=== PATIENT | male | born 1945 | race Caucasian/White ===

== ENCOUNTER 2018-02-09 07:42 | Day surgery (SDC) | payer OTHER ==
[~2018-02-09] VITALS: Ht 185.4 cm; Wt 117.9 kg
[2018-02-09] VITALS (12 sets, daily range): BP systolic 128–156; BP diastolic 65–80
[2018-02-09] MEDS ORDERED: dextrose ORAL solution 15 GM/59 ML bottle PO PRN ×2 (08:25)
[2018-02-09] MEDS ORDERED: MESSAGE TO PHARMACY PO ONE (08:25)
[2018-02-09] MEDS ORDERED: diphenhydrAMINE 25mg capsule PO PRN (08:25)
[2018-02-09] MEDS ORDERED: insulin Lispro (HumaLOG) vial - multi-dose SQ SCH (08:25)
[2018-02-09] MEDS ORDERED: dextrose 50%-water 50ml dispensing syringe IV PRN ×2 (08:25)
[2018-02-09] MEDS ORDERED: normal saline 1000ml 1,000 ML IV SCH ×2 (08:25→14:10)
[2018-02-09] MEDS ORDERED: glucagon, human recombinant 1mg kit SUBCUT PRN (08:25)
[2018-02-09] MEDS ORDERED: LORazepam 0.5 MG tablet PO PRN (08:25)
[2018-02-09] MEDS ORDERED: nitroGLYCERIN 0.4mg SUBLingual tab SL PRN ×2 (08:25→14:10)
[2018-02-09 08:48] LABS: PARTIAL THROMBOPLASTIN TIME 26 SECONDS (22-32); PROTHROMBIN TIME 10.3 SECONDS (9.0-12.0)
[2018-02-09 08:52] LABS: ANION GAP 12 (8-16); BLOOD UREA NITROGEN 14 MG/DL (7-18); BUN/CREATININE RATIO 14.3 (5.4-32.0); CALCIUM 8.7 MG/DL (8.5-10.1); CHLORIDE 102 MMOL/L (99-107); CREATININE 0.98 MG/DL (0.60-1.10); GLUCOSE 233 MG/DL (70-104); POTASSIUM 4.1 MMOL/L (3.5-5.1); SODIUM 137 MMOL/L (135-145); TOTAL CARBON DIOXIDE 23.4 MMOL/L (24-32); eGFR 75 ML/MIN
[2018-02-09 09:02] LABS: BASOPHILS % (AUTO) 0.6 % (0-1); EOSINOPHILS # (AUTO) 0.3 X10'3 (0-0.9); EOSINOPHILS % (AUTO) 4.4 % (0-6); HEMATOCRIT 39.8 % (42.0-52.0); HEMOGLOBIN 13.7 g/dl (14.0-17.9); LYMPHOCYTES % (AUTO) 27.5 % (21-51); MEAN CORPUSCULAR HEMOGLOBIN 30.5 PG (27.0-31.0); MEAN CORPUSCULAR HGB CONC 34.5 % (33.0-36.5); MEAN CORPUSCULAR VOLUME 88.4 FL (78-98); MEAN PLATELET VOLUME 9.3 FL (7.4-10.4); MONOCYTES # (AUTO) 0.6 X10'3 (0-0.9); MONOCYTES % (AUTO) 8.8 % (2-12); NEUTROPHILS # (AUTO) 4.3 X10'3 (1.8-7.7); NEUTROPHILS % (AUTO) 58.7 % (42-75); PLATELET COUNT 225 X10'3 (140-440); WHITE BLOOD COUNT 7.3 X10'3 (4.5-11.0)
[2018-02-09] MEDS ORDERED: ATOR40TA PO (09:57)
[2018-02-09] MEDS ORDERED: INSU100V9 SQ (09:57)
[2018-02-09] MEDS ORDERED: LISI-600 PO (09:57)
[2018-02-09] MEDS ORDERED: HYDR25TA4 PO (09:57)
[2018-02-09] MEDS ORDERED: CARV3.122 PO (09:57)
[2018-02-09] MEDS ORDERED: METF10002 PO (09:57)
[2018-02-09] MEDS ORDERED: CLOP75TA15 PO (09:57)
[2018-02-09] MEDS ORDERED: ACAR100T3 PO (09:57)
[2018-02-09] MEDS ORDERED: ASPI-1265 PO (09:57)
[2018-02-09] MEDS ORDERED: iohexol 350 MG/ML 50ML vial IV ONE (10:36)
[2018-02-09] MEDS ORDERED: iohexol 350MG/ML 100ml bottle IV ONE (10:36)
[2018-02-09] MEDS ORDERED: midazolam 2 mg/2 ml injection ONE (10:36)
[2018-02-09] MEDS ORDERED: fentaNYL/PF 50MCG/1 ML 2ML syringe ONE (10:36)
[2018-02-09] MEDS ORDERED: LIDOcaine 1%/PF (10mg/ml) 5ml vial ONE ×2 (10:36→11:06)
[2018-02-09] MEDS ORDERED: HYDROcodone/acetaminophen 5mg/325mg tablet PO PRN (14:10)
[2018-02-09] MEDS ORDERED: ondansetron/PF 4mg/2ml inj IV PRN (14:10)
[2018-02-09] MEDS ORDERED: OXAZEpam 15mg capsule PO PRN (14:10)
[2018-02-09] MEDS ORDERED: proCHLORperazine 10 MG/2 ml inj IV PRN (14:10)
[2018-02-09] MEDS ORDERED: HYDROcodone/acetaminophen 10/325mg tab PO PRN (14:10)
[2018-02-09] MEDS ORDERED: insulin glargine (Lantus) pen - multi-dose SQ SCH (21:00)
== END 2018-02-09 17:30 | disposition home or self-care (01) ==
LOC: SSTAY O 07:42
PROVIDERS: ATTEND Internal Medicine Cardiovascular Disease
DX: I25.10 Atherosclerotic heart disease of native coronary artery without angina pectoris (principal); E11.9 Type 2 diabetes mellitus without complications; I10 Essential (primary) hypertension; K21.9 Gastro-esophageal reflux disease without esophagitis; E78.5 Hyperlipidemia, unspecified; F32.9 Major depressive disorder, single episode, unspecified; Z98.890 Other specified postprocedural states; Z86.74 Personal history of sudden cardiac arrest; Z85.028 Personal history of other malignant neoplasm of stomach; Z95.5 Presence of coronary angioplasty implant and graft; Z79.01 Long term (current) use of anticoagulants; Z79.82 Long term (current) use of aspirin; Z79.4 Long term (current) use of insulin; Z79.84 Long term (current) use of oral hypoglycemic drugs; Z79.899 Other long term (current) drug therapy
CPT/HCPCS: 36415; 71046; 80048; 82948; 83036; 85025; 85610; 85730; 93005; 93458; 99152; A6257; C1760; C1769; J1644; J2001; J2250; J3010; J7030; Q0163; Q9967; A4620; J1815

== ENCOUNTER 2023-08-17 10:15 | Outpatient (CLI) | payer OTHER ==
[~2023-08-17 10:15] MED LIST: ACAR100T2 PO; ASPI-1265 PO; ATOR40TA PO; CARV3.122 PO; CLOP75TA15 PO; HYDR25TA4 PO; INSU100V9 SQ; LISI20TA28 PO; METF-438 PO
[2023-08-17 11:02] LABS: BILIRUBIN,URINE NEGATIVE (Neg); CLARITY,URINE SLIGHTLY CLOUDY (Clear); COLOR,URINE YELLOW (Yellow); GLUCOSE, URINE NEGATIVE (Neg); KETONES,URINE NEGATIVE (Neg); LEUKOCYTE ESTERASE ,URINE NEGATIVE (Neg); NITRITES, URINE NEGATIVE (Neg); OCCULT BLOOD,URINE NEGATIVE (Neg); PROTEIN,URINE NEGATIVE (Neg); UROBILINOGEN,URINE 0.2 E.U/dL (0.2-1.0)
[2023-08-17 11:05] LABS: UA COLLECTION TYPE VOIDED
[2023-08-17 11:14] LABS: ALBUMIN 3.6 G/DL (3.4-5.0); ANION GAP 8 (8-16); BLOOD UREA NITROGEN 25 MG/DL (7-18); BUN/CREATININE RATIO 22.3 (10.0-20.0); CHLORIDE 104 MMOL/L (99-107); CREATININE 1.12 MG/DL (0.60-1.10); GLUCOSE 125 MG/DL (70-104); POTASSIUM 4.5 MMOL/L (3.5-5.1); SODIUM 138 MMOL/L (135-145); TOTAL CARBON DIOXIDE 26.4 MMOL/L (24-32); eGFR 64 ML/MIN
[2023-08-17 11:24] LABS: BACTERIA,URINE NONE SEEN /HPF (Neg); RBC,URINE NONE SEEN /HPF (0-2); WBC,URINE 0-4 /HPF (0-4)
[2023-08-17 11:25] LABS: SQUAMOUS EPITHELIAL CELL,UR FEW /LPF (FEW)
== END 2023-08-17 23:59 | disposition home or self-care (01) ==
LOC: CARD DIAG 10:15
PROVIDERS: ATTEND Chiropractor
DX: I08.8 Other rheumatic multiple valve diseases (principal); I25.10 Atherosclerotic heart disease of native coronary artery without angina pectoris; E11.9 Type 2 diabetes mellitus without complications
CPT/HCPCS: 36415; 80048; 81001; 93306